=== PATIENT | female | born 1995 | race Caucasian/White ===

== ENCOUNTER 2017-03-09 23:59 | Emergency (ER) | payer OTHER ==
--- NOTE | ~2017-03-09 | EKG ---
PATIENT: PEDRITO SÁNCHEZ UNIT #: [id number] Ventricular Rate: 73 BPM Atrial Rate: 73 BPM P-R Interval: 152 ms QRS Duration: 82 ms Q-T Interval: 396 ms QTC Calculation(Bezet): 436 ms P [place]: 55 degrees Calculated R [place]: 35 degrees Calculated T [place]: 40 degrees Diagnosis Line: Normal sinus rhythm Diagnosis Line: Normal ECG Diagnosis Line: When compared with ECG of 10-MAR-2017 02:18, Diagnosis Line: (unconfirmed) Diagnosis Line: No significant change was found Diagnosis Line: Confirmed by GILBERTO HAZEL MD ([id number]) on Diagnosis Line: 03/11/2017 8:48:57 AM INTERPRETING MD: [email or web address]
[~2017-03-09 23:59] MED LIST: AMOXICILLIN500 M1 PO; AMOXIL400 MG/51 PO; BENADRYL PO; ELIMITE60 GM TOP; IMPLANON68 MG/IMPL SQ; MEDROL PO; NO MEDICATIONS; PREDNISOLO15 MG/5 ML PO; PRILOSEC20 M1 PO; ZOFRAN ODT4 MG PO; ZOFRAN ODT4 MG/UDTAB PO; ZOFRAN PO
[2017-03-10 01:20] LABS: BASOPHIL% 0.5 % (0-2.5); EOSINOPHIL# 0.1 X10e3 (0-0.7); EOSINOPHIL% 2.1 % (0.0-7.0); HEMATOCRIT 40.6 % (35.0-45.0); HEMOGLOBIN 13.5 gm/dL (12.0-16.0); LYMPHOCYTE# 2.6 X10e3 (1.0-3.5); LYMPHOCYTE% 36.3 % (17.0-45.0); MEAN CELL VOLUME 87.9 FL (83-96); MEAN CORPUSCULAR HEMOGLOBIN 29.3 PG (28-34); MEAN CORPUSCULAR HGB CONC 33.3 g/dL (30-36); MEAN PLATELET VOLUME 8.2 FL (6.5-11.5); MONOCYTE# 0.6 X10e3 (0-1.0); MONOCYTE% 7.8 % (3.0-12.0); NEUTROPHIL# 3.8 X10e3 (1.5-7.1); NEUTROPHIL% 53.3 % (40-75); PLATELET COUNT 194 X10e3 (140-420); RED BLOOD COUNT 4.62 X10e (3.90-5.30); RED CELL DISTRIBUTION WIDTH 13.6 % (11.0-15.5); WHITE BLOOD COUNT 7.2 X10e3 (4.0-10.5)
[2017-03-10 01:23] LABS: DIFF IND NO
[2017-03-10 01:43] LABS: ALKALINE PHOSPHATASE 64 U/L (32-92); ALT (SGPT) 18 U/L (10-40); AST (SGOT) 20 U/L (10-42); BILIRUBIN, DIRECT <0.1 mg/dL (0.0-0.2); BILIRUBIN,INDIRECT 0.4 mg/dL (0.0-0.9); BILIRUBIN,TOTAL 0.5 mg/dL (0.2-2.0); BLOOD UREA NITROGEN 9 mg/dL (9-23); BUN/CREATININE RATIO 11.25; CALCIUM SERUM 8.6 mg/dL (8.4-10.2); CARBON DIOXIDE 30 mmol/L (22-31); CHLORIDE 102 mmol/L (100-111); CREATININE SERUM 0.8 mg/dL (0.6-1.4); GLOM FILT RATE Estimated 105.5 mL/min (>60); GLUCOSE FASTING 93 mg/dL (70-110); POTASSIUM 3.8 mmol/L (3.5-5.1); PROTEIN TOTAL SERUM 6.8 g/dL (6.0-8.3); SALICYLATE <4.0 mg/dL; SODIUM 138 mmol/L (135-145)
[2017-03-10 01:44] LABS: ACETAMINOPHEN <10 ug/mL; ALCOHOL BLOOD <5 mg/dL ([, 0])
== END 2017-03-10 04:05 | disposition home or self-care (01) ==
LOC: CED 23:59
PROVIDERS: Emergency Medicine
DX: F11.129 Opioid abuse with intoxication, unspecified (principal); F13.129 Sedative, hypnotic or anxiolytic abuse with intoxication, unspecified; F17.200 Nicotine dependence, unspecified, uncomplicated
CPT/HCPCS: 36415; 80048; 80076; 85025; 93005; 99283; G0480; J2310

== ENCOUNTER → 2017-03-15 17:32 | Emergency (ER) | payer OTHER | END | disposition left against medical advice (07) | LOC: CED 17:32 | DX: Z53.21 Procedure and treatment not carried out due to patient leaving prior to being seen by health care provider (principal) ==